=== PATIENT | male | born 1985 | race Caucasian/White ===

== ENCOUNTER 2016-11-20 14:50 | Emergency (ER) | payer SELFPAY ==
[~2016-11-20] VITALS: Ht 177.8 cm; Wt 96.0 kg
[2016-11-20 14:54] VITALS: BP 114/86; PULSE 135; RESP 16; TEMP 99; O2SAT 97
[2016-11-20] MEDS ORDERED: SODIUM CHLOR 0.9% 1000 ML INJ 1,000 ML IV ONE ×3 (15:33)
--- NOTE | 2016-11-20 15:54 | PD ---
HPI Chief Complaint: Fever Time Seen by Provider: 15:22 Travel History International Travel<30 days: No Contact w/Intl Traveler<30days: No Traveled to known affect area: No History of Present Illness HPI Patient is a 31-year-old female who presents to emergency room with complaints of fever. Patient reports that he is IV drug abuser, reports that he abuses IV Dilaudid and last use was 30 minutes prior to arrival to ER. Patient reports that for the past 5 days, he has had high fevers. Patient reports that his MAXIMUM TEMPERATURE is 103.4. Patient reports that he has been taking ibuprofen as well as DayQuil with no relief of his symptoms. Patient reports that today, he noticed a rash all over his skin. Patient reports that all his joints feel achy, reports that he feels hot and clammy and diaphoretic. Patient reports no chest pain or shortness of breath. Patient denies any abdominal pain, nausea or vomiting. Patient denies any cough or congestion. Patient reports that he only abuses Dilaudid, does not abuse any other drugs. Patient reports that he uses about 8 tabs of 8mg tabs per day. Patient denies any dysuria, urinary urgency or frequency or discharge. Patient reports that he is not sure has needles with anyone else, adamantly denies use of any other drugs PFSH Past Medical History Diminished Hearing: No Respiratory: Yes (asthma as a child) Tetanus Vaccination: Unknown Influenza Vaccination: No ?: Not Social History Alcohol Use: No Tobacco Use: Yes (1 PPD) Substance Use: Yes (Dilaudid) Allergies-Medications (Allergen,Severity, Reaction): Coded Allergies: Penicillin (Verified Allergy, Severe, Anaphylaxis, 11/20/16) Review of Systems General / Constitutional: Positive: Fever, Chills Eyes: No: Visual changes HENT: No: Headaches Cardiovascular: Positive: Diaphoresis, No: Chest Pain or Discomfort Respiratory: No: Shortness of Breath Gastrointestinal: No: Abdominal Pain Genitourinary: No: Dysuria Musculoskeletal: No: Pain Skin: Positive Rash Neurologic: Positive: Weakness Psychiatric: Positive: Substance Abuse, No: Depression Endocrine: No: Polydipsia Hematologic/Lymphatic: No: Easy Bruising Physical Exam Narrative GENERAL: Moderate distress SKIN: Focused skin assessment warm/dry, patient with rash to chest/abdomen/ pelvis, no petechiae or purpura, no vesicular lesion, no drainage HEAD: Atraumatic. Normocephalic. EYES: Pupils equal and round. No scleral icterus. No injection or drainage. ENT: No nasal bleeding or discharge. Mucous membranes pink and moist. NECK: Trachea midline. No JVD. No meningeal signs, negative Kernig's and Brudzinski sign CARDIOVASCULAR: Tachycardic. No murmur appreciated. RESPIRATORY:. Clear to auscultation. Breath sounds equal bilaterally. GASTROINTESTINAL: Abdomen soft, non-tender, nondistended. Hepatic and splenic margins not palpable. MUSCULOSKELETAL: No obvious deformities. No clubbing. No cyanosis. No edema. Patient with track dunlap to b/l arms NEUROLOGICAL: Awake and alert. No obvious cranial nerve deficits. Motor grossly within normal limits. Normal speech. PSYCHIATRIC: Appropriate mood and affect; insight and judgment normal. Data Data Last Documented VS Vital Signs Date Time Temp Pulse Resp B/P Pulse Ox O2 Delivery O2 Flow Rate FiO2 11/20/16 17:05 88 18 121/62 100 11/20/16 14:54 99.0 Orders Complete Blood Count With Diff (11/20/16 15:33) Comprehensive Metabolic Panel (11/20/16 15:33) Prothrombin Time / Inr (Pt) (11/20/16:33) Act Partial Throm Time (Ptt) (11/20/16 15:33) Lactic Acid Sepsis Protocol (11/20/16 15:33) Urinalysis - C+S If Indicated (11/20/16 15:33) Influenzae A/B Antigen (11/20/16 15:33) Blood Culture (11/20/16 15:33) Chest, Single Ap (11/20/16 15:33) Blood Glucose (11/20/16 15:33) Ecg Monitoring (11/20/16 15:33) Iv Access Insert/Monitor (11/20/16:33) Oximetry (11/20/16 15:33) Oxygen Administration (11/20/16 15:33) Sodium Chlor 0.9% 1000 Ml Inj (Ns 1000 M (11/20/16 15:33) Sodium Chlor 0.9% 1000 Ml Inj (Ns 1000 M (11/20/16 15:33) Sodium Chlor 0.9% 1000 Ml Inj (Ns 1000 M (11/20/16 15:33) Drug Screen, Random Urine (11/20/16 15:33) Gc And Chlamydia Pcr (11/20/16 15:35) Electrocardiogram (11/20/16 ) D-Dimer (11/20/16 15:58) Diphenhydramine Inj (Benadryl Inj) (11/20/16 16:45) Ct Pulmonary Angiogram (11/20/16 16:50) Potassium Chloride (Kcl) (11/20/16 17:30) Iohexol 350 Inj (Omnipaque 350 Inj) (11/20/16 17:19) Labs Laboratory Tests Test 11/20/16 11/20/16 11/20/16 15:58 16:00 16:11 White Blood Count 3.0 TH/MM3 Red Blood Count 4.14 MIL/MM3 Hemoglobin 12.3 GM/DL Hematocrit 35.1 % Mean Corpuscular Volume 84.9 FL Mean Corpuscular Hemoglobin 29.7 PG Mean Corpuscular Hemoglobin 35.0 % Concent Red Cell Distribution Width 13.4 % Platelet Count 63 TH/MM3 Mean Platelet Volume 9.3 FL Neutrophils (%) (Auto) 76.2 % Lymphocytes (%) (Auto) 18.5 % Monocytes (%) (Auto) 5.0 % Eosinophils (%) (Auto) 0.0 % Basophils (%) (Auto) 0.3 % Neutrophils # (Auto) 2.2 TH/MM3 Lymphocytes # (Auto) 0.6 TH/MM3 Monocytes # (Auto) 0.2 TH/MM3 Eosinophils # (Auto) 0.0 TH/MM3 Basophils # (Auto) 0.0 TH/MM3 CBC Comment AUTO DIFF Differential Comment AUTO DIFF CONFIRMED Platelet Estimate LOW Platelet Morphology Comment ENLARGED Prothrombin Time 12.0 SEC Prothromb Time International 1.1 RATIO Ratio Activated Partial 31.2 SEC Thromboplast Time D-Dimer Quantitative (PE/DVT) 9.33 MG/L FEU Sodium Level 133 MEQ/L Potassium Level 3.0 MEQ/L Chloride Level 97 MEQ/L Carbon Dioxide Level 28.8 MEQ/L Anion Gap 7 MEQ/L Blood Urea Nitrogen 12 MG/DL Creatinine 0.92 MG/DL Estimat Glomerular Filtration 96 ML/MIN Rate Random Glucose 109 MG/DL Calcium Level 8.0 MG/DL Total Bilirubin 0.9 MG/DL Aspartate Amino Transf 57 U/L (AST/SGOT) Alanine Aminotransferase 61 U/L (ALT/SGPT) Alkaline Phosphatase 61 U/L Total Protein 7.2 GM/DL Albumin 3.2 GM/DL Lactic Acid Level 1.0 mmol/L Urine Color ELAINE Urine Turbidity CLEAR Urine pH 6.0 Urine Specific [place] 1.024 Urine Protein 30 mg/dL Urine Glucose (UA) NEG mg/dL Urine Ketones TRACE mg/dL Urine Occult Blood TRACE Urine Nitrite NEG Urine Bilirubin NEG Urine Leukocyte Esterase NEG Urine RBC 0-3 /hpf Urine WBC 0-2 /hpf Urine Squamous Epithelial 0-5 /hpf Cells Urine Amorphous Sediment FEW Urine Mucus MANY /lpf Microscopic Urinalysis Comment CATH-CULT NOT IND Urine Opiates Screen POS Urine Barbiturates Screen NEG Urine Amphetamines Screen NEG Urine Benzodiazepines Screen NEG Urine Cocaine Screen NEG Urine Cannabinoids Screen NEG MDM Medical Decision Making Medical Screen Exam Complete: Yes Emergency Medical Condition: Yes Interpretation(s) EKG [id number]: Sinus tachycardia at 107bpm, qt/qtc: 336/418, no acute st or t wave changes Vital Signs Date Time Temp Pulse Resp B/P Pulse Ox O2 Delivery O2 Flow Rate FiO2 11/20/16 14:54 99.0 135 16 114/86 97 Differential Diagnosis Bacteremia, pneumonia, septic pulmonary emboli, gonococcal arthritis, electrolyte abnormality, viral syndrome, influenza Narrative Course Patient is a 31-year-old male who presents to emergency room with complaints of fever for the past 5 days. Patient reports that he is an IV drug abuser, reports that for the past 5 days, he has had temperatures of 103.4, he is unable to break his temperature, he last took ibuprofen 600 mg at 11 AM this morning. Patient with arthralgias, fevers, chills, nausea, diaphoresis ongoing for the past 5 days. Patient is tachycardic with a heart rate in the 130s upon arrival to emergency room, he is diaphoretic at bedside, labs, blood cultures and lactate ordered. IVF ordered cbc: wbc:3.9 hgb: 12.3 hct: 35.1 plt: 63 bmp: sodium 133 potassium 3.0 chloride: 97 bun 12 cr 0.92 glucose 109 lactic acid 1.0 ast: 57 alt: 61 alk phos 61 UA: trace ketones, trace occult blood, 0-2 wbc, many mucous UDS: Positive for opiates D.dimer: 9.33 Vital Signs Date Time Temp Pulse Resp B/P Pulse Ox O2 Delivery O2 Flow Rate FiO2 11/20/16 17:05 88 18 121/62 100 11/20/16 16:12 98 11/20/16 14:54 99.0 135 16 114/86 97 VSS at this time. CTA ordered to evaluation of PE. Last Impressions CT Angiography 11/20/16 1650 Signed Impressions: Service Date/Time: Sunday, November 20, 2016 17:04 - CONCLUSION: No evidence of pulmonary embolism or acute cardiopulmonary process. Rico Ceja MD Chest X-Ray 11/20/16 1533 Signed Impressions: Service Date/Time: Sunday, November 20, 2016 15:43 - CONCLUSION: No acute disease. Jeronimo Malagon MD FACR Patient reevaluated, patient reports that he is feeling 100% better. Vital signs are stable, patient is tachycardic after iv fluids. cta of the chest shows no acute pulmonary embolism or no acute cardiopulmonary process. patient' s lactic acid is 1.0 patient with no elevated white blood cell count. I am unsure of source of patient's fever for the past 5 days, discussed with patient need to follow-up with all cultures from today. Patient will return to the emergency room and 48 hours for reevaluation, he will return to emergency room earlier if he develops any fevers or chills or any progressing symptoms. I did review all labs and all studies with patient in detail. He does understand importance of following up with his primary care doctor. Signs and symptoms of when to return to the emergency room was reviewed in detail and at length with patient. I did encourage patient to stop using drugs Diagnosis Primary Impression: Fever and chills Additional Impressions: Thrombocytopenia Hypokalemia Hyponatremia Drug abuse and dependence Patient Instructions: General Instructions Additional Instructions: Please give patient a copy of his labwork and studies at discharge Please follow up with all cultures from today Return to ER in 48 hours for re-evaluation Return to emergency room earlier if symptoms worsen or persist or if you develops any fevers or chills Please follow up with your primary care doctor as soon as possible Disposition: 01 DISCHARGE HOME Condition: Stable Monisha Schwartz DO November 20, 2016 15:54
--- NOTE | 2016-11-20 16:08 | RADHPO ---
EXAM DATE/TIME: 11/20/2016 15:43 [facility] COMPARISON: No previous studies available for comparison. INDICATIONS : Fever for 5 days MEDICAL HISTORY : None. SURGICAL HISTORY : None. ENCOUNTER: Initial ACUITY: 4 - 6 days PAIN SCORE: 0/10 LOCATION: Bilateral chest FINDINGS: A single view of the chest demonstrates the lungs to be symmetrically aerated without evidence of mas s, infiltrate or effusion. The cardiomediastinal contours are unremarkable. Osseous structures are intact. CONCLUSION: No acute disease. Jeronimo Malagon MD FACR on November 20, 2016 at 16:05 Board Certified Radiologist. This report was verified electronically.
[2016-11-20 16:12] VITALS: O2SAT 98
[2016-11-20 16:20] LABS: AUTOMATED NEUTROPHIL # 2.2 TH/MM3 (1.8-7.7); BASOPHIL % 0.3 % (0.0-2.0); HEMATOCRIT 35.1 % (39.0-51.0); LYMPH % 18.5 % (9.0-44.0); LYMPHOCYTE # 0.6 TH/MM3 (1.0-4.8); MEAN CELL VOLUME 84.9 FL (80.0-100.0); MEAN CORPUSCULAR HEMOGLOBIN 29.7 PG (27.0-34.0); NEUT % 76.2 % (16.0-70.0); PLATELET COUNT 63 TH/MM3 (150-450); RED BLOOD COUNT 4.14 MIL/MM3 (4.50-5.90); RED CELL DISTRIBUTION WIDTH 13.4 % (11.6-17.2)
[2016-11-20 16:26] LABS: BLOOD, URINE TRACE (NEG); GLUCOSE,URINE NEG (NEG); KETONE, URINE TRACE mg/dL (NEG); NITRITE,URINE NEG (NEG)
[2016-11-20 16:27] LABS: CHLORIDE 97 MEQ/L (98-107); SODIUM (NA) 133 MEQ/L (136-145)
[2016-11-20 16:29] LABS: HEMO FLAGS AUTO DIFF
[2016-11-20 16:31] LABS: ANION GAP 7 MEQ/L (5-15); BICARBONATE 28.8 MEQ/L (21.0-32.0); BLOOD UREA NITROGEN 12 MG/DL (7-18)
[2016-11-20 16:34] LABS: ALT (GPT) 61 U/L (12-78); AST (GOT) 57 U/L (15-37); GLOMERULAR FILTRATION RATE 96 ML/MIN (>89)
[2016-11-20 16:36] LABS: TOTAL BILIRUBIN ADULT 0.9 MG/DL (0.2-1.0)
[2016-11-20 16:36] LABS: AMPHETAMINE, URINE NEG (NEG); BARBITURATES, URINE NEG (NEG); COCAINE, URINE NEG (NEG)
[2016-11-20 16:37] LABS: ALKALINE PHOSPHATASE 61 U/L (45-117)
[2016-11-20 16:44] LABS: APTT (PATIENT) 31.2 SEC (24.3-30.1); INTERNATIONAL NORMALIZED RATIO 1.1 RATIO
[2016-11-20] MEDS ORDERED: diphenhydrAMINE HCL 50 MG/ML VIAL IV PUSH ONE (16:45)
[2016-11-20 16:48] LABS: URINE COLOR AMBER (YELLW/STRAW)
[2016-11-20 16:49] LABS: MUCUS URINE MANY /lpf (OCC)
[2016-11-20 16:50] LABS: RBC, URINE 0-3 /hpf (0-3); SQUAMOUS EPITHELIAL CELL URINE 0-5 /hpf (0-5); WBC, URINE 0-2 /hpf (0-5)
[2016-11-20 16:51] LABS: COMMENT (UR) CATH-CULT NOT IND; CULTURE IF INDICATED CATH CULTURE NOT IND
[2016-11-20 17:03] LABS: PLATELET ESTIMATE SMEAR LOW (NORMAL); PLATELET MORPHOLOGY ENLARGED (NORMAL); SCAN/DIFF AUTO DIFF CONFIRMED
[2016-11-20 17:05] VITALS: BP 121/62; PULSE 88; RESP 18; O2SAT 100
[2016-11-20] MEDS ORDERED: IOHEXOL 350 MG/ML 10 ML VIAL (for RAD DIAG) IV ONE (17:19)
[2016-11-20] MEDS ORDERED: POTASSIUM CHLORIDE 10 MEQ CONTROLLED RELEASE TAB PO ONE (17:30)
--- NOTE | 2016-11-20 17:37 | RADHPO ---
EXAM DATE/TIME: 11/20/2016 17:04 [facility] COMPARISON: No previous studies available for comparison. INDICATIONS : Fever. IV CONTRAST: 75 cc Omnipaque 350 (iohexol) IV RADIATION DOSE: 20.54 CTDIvol (mGy) MEDICAL HISTORY : None SURGICAL HISTORY : None. ENCOUNTER: Initial ACUITY: 1 day PAIN SCALE: 0/10 LOCATION: chest TECHNIQUE: Volumetric scanning of the chest was performed using a pulmonary embolism protocol MIP images were re constructed. Using automated exposure control and adjustment of the mA and/or kV according to patien t size, radiation dose was kept as low as reasonably achievable to obtain optimal diagnostic quality images. FINDINGS: PULMONARY ARTERIES: No filling defects are seen in the pulmonary arteries through the segmental level. LUNGS: There is no consolidation or pneumothorax . No concerning pulmonary nodule is visualized. PLEURAE: There is no pleural thickening or pleural effusion. MEDIASTINUM: There is good visualization of the great vessels of the middle mediastinum. No evidence of mediastin al or hilar adenopathy/mass. MUSCULOSKELETAL: Within normal limits for patient age. MISCELLANEOUS: The visualized upper abdominal organs demonstrate no acute abnormality. CONCLUSION: No evidence of pulmonary embolism or acute cardiopulmonary process. Rico eCja MD on November 20, 2016 at 17:34 Board Certified Radiologist. This report was verified electronically.
[2016-11-20 21:48] LABS: CHLAMYDIA PCR NOT DETECTED (NOT DETECT); NEISSERIA PCR NOT DETECTED (NOT DETECT)
--- NOTE | 2016-11-21 15:12 | EKG ---
Date Performed: 11/20/2016 Time Performed: 15:40:46 PTAGE: 31 years EKG: Sinus tachycardia Normal ECG except for rate NO PREVIOUS TRACING DOCTOR: Willie Cooney Interpretating Date/Time 11/21/2016 15:10:34
== END 2016-11-20 18:33 | disposition home or self-care (01) ==
LOC: PHED 14:50
DX: R50.9 Fever, unspecified (principal); D69.6 Thrombocytopenia, unspecified; E87.6 Hypokalemia; E87.1 Hypo-osmolality and hyponatremia; R00.0 Tachycardia, unspecified; M25.50 Pain in unspecified joint; R21 Rash and other nonspecific skin eruption; R53.1 Weakness; R61 Generalized hyperhidrosis; F11.10 Opioid abuse, uncomplicated
CPT/HCPCS: 71010; 71275; 80053; 80307; 81001; 83605; 85025; 85379; 85610; 85730; 87040; 87491; 87591; 87804; 93005; 96361; 96374; 99284; J1200; J7030; Q9967